=== PATIENT | female | born 1970 | race Caucasian/White ===

== ENCOUNTER 2021-09-22 10:33 | Emergency (ER) | payer OTHER ==
[2021-09-22 11:02] VITALS: BP 111/76; PULSE 67; TEMP 98.7; BMI 20.8
[2021-09-22] MEDS ORDERED: ACETAMINOPHEN 325 MG TABLET (FP) PO ONE (11:26)
[2021-09-22] MEDS ORDERED: ONDANSETRON 4 MG/2 ML VIAL IVPUSH ONE (11:37)
[2021-09-22] MEDS ORDERED: ONDANSETRON *ODT* 4 MG TABLET SL ONE (11:43)
[2021-09-22] MEDS ORDERED: ACETAMINOPHEN 325 MG TABLET (FP) ONE (11:45)
[2021-09-22] MEDS ORDERED: ONDANSETRON *ODT* 4 MG TABLET ONE (11:46)
[2021-09-22 13:20] LABS: HEMATOCRIT 34.9 % (32.4-45.2); HEMOGLOBIN 12.3 G/dL (10.7-15.3); MCH 30.1 pg (25.7-33.7); MCHC 35.2 g/dl (32.0-36.0); MEAN CELL VOLUME 85.8 fl (80-96); MEAN PLT VOLUME 7.5 fl (7.5-11.1); PLATELET COUNT 213.7 10^3/uL (134-434); RBC 4.07 10^6/uL (3.60-5.2); RDW 14.1 % (11.6-15.6); WHITE BLOOD COUNT 5.7 10^3/uL (4.0-10.8)
[2021-09-22 13:24] LABS: ALBUMIN 4.1 g/dl (3.4-5.0); BILIRUBIN,TOTAL 0.6 mg/dl (0.2-1); CALCIUM 9.5 mg/dl (8.5-10); CREATININE 0.8 mg/dl (0.55-1.3); TOT PROT 6.5 g/dl (6.4-8.2)
[2021-09-22 14:18] LABS: PLATELET ESTIMATE ADEQUATE
== END 2021-09-22 15:03 | disposition home or self-care (01) ==
LOC: FER 10:33
DX: R55 Syncope and collapse (principal); R51.9 Headache, unspecified; M25.531 Pain in right wrist
CPT/HCPCS: 36415; 70450-TC; 70486-TC; 71046-TC-FY; 73110-TC-RT-FY; 73130-TC-RT-FY; 80053; 84484; 85025; 93005; 99285-25; Q0162